=== PATIENT | female | born 1955 | race Caucasian/White ===

== ENCOUNTER 2024-11-15 13:55 | Outpatient (CLI) | payer OTHER, MEDICARE | END 2024-11-15 13:56 | disposition home or self-care (01) | LOC: CSHMAMMO 13:55 | PROVIDERS: ATTEND Family Medicine | DX: Z12.31 Encounter for screening mammogram for malignant neoplasm of breast (principal); Z98.82 Breast implant status | CPT/HCPCS: 77063; 77067 ==